=== PATIENT | male | born 1955 | race African-American/Black ===

== ENCOUNTER 2018-12-30 18:32 | Emergency (ER) | payer MEDICARE, OTHER ==
[~2018-12-30] VITALS: Ht 172.7 cm; Wt 123.4 kg
[~2018-12-30 18:32] MED LIST: ACETAMINOPHEN325 M3 PO; CEFTRIAXON1 GM/50 ML IV; HYDROCHLOROTHIA25 MG ORAL; LISINOPRIL20 MG ORAL; LISINOPRIL30 MG ORAL; MIRALAX17 G2 ORAL
[2018-12-30] MEDS ORDERED: TAMSULOSIN HCL0.4 MG ORAL (18:42)
--- NOTE | 2018-12-30 18:45 | NUR ---
ED Nurse Note: Pt walked into the Er w/ complaints of HTN. For the past 3 days, pt has had hot links. Pt has a hx of HTN and takes lisinopril. A + O x4. Ambulatory. Skin warm to touch.
[2018-12-30 18:46] VITALS: BP 162/95
--- NOTE | 2018-12-30 19:09 | NUR ---
HAND-OFF: Report given to ASIF Quiles.
--- NOTE | 2018-12-30 19:12 | Emergency Room Report ---
History of Present Illness General Chief Complaint: Hypertension Source: Patient Present Illness HPI 63-year-old male patient presents the ER complaining of high blood pressure, reflux symptoms, headache. Reports was attempting to give him blood and platelets earlier today however was turned away because his blood pressure was elevated to over 170. Currently at 162 in the ER. States that he normally takes Hydrochlorothiazide and lisinopril, states that he took his medication today. Also complaining of frontal headache during this time. Denies vomiting or vision changes. Denies chest pain or shortness of breath. Denies history of heart attack. Denies abdominal pain. Reports reflux symptoms, states that he ate hot links yesterday and can "still taste it" in his breath. Denies neck pain. Denies other aggravating or relieving factors. Denies smoking cigarettes or drug use, states that he smokes marijuana. Allergies: Coded Allergies: No Known Allergies (Unverified , 10/02/16) Patient History Past Medical History: see triage record Reviewed Nursing Documentation: PMH: Agreed; PSxH: Agreed Nursing Documentation-PMH Past Medical History: No History, Except For Hx Cardiac Problems: No - Osteoarthritis Hx Hypertension: Yes Hx Pacemaker: No Hx Asthma: No Hx COPD: No Hx Diabetes: No Hx Cancer: No Hx Gastrointestinal Problems: Yes - constipation Hx Dialysis: No - BPH Hx Neurological Problems: No Hx Cerebrovascular Accident: No Hx Seizures: No Review of Systems All Other Systems: negative except mentioned in HPI Physical Exam Vital Signs Date Time Temp Pulse Resp B/P (MAP) Pulse Ox O2 Delivery O2 Flow Rate FiO2 12/30/18 18:33 97.9 84 17 162/95 98 Room Air 12/30/18 18:46 97 Sp02 EP Interpretation: reviewed, normal General Appearance: well appearing, no apparent distress, alert, GCS 15, non- toxic Head: normocephalic, atraumatic Eyes: bilateral eye normal inspection, bilateral eye PERRL, bilateral eye EOMI ENT: hearing grossly normal, normal pharynx, no angioedema, normal voice, TMs + canals normal, uvula midline, moist mucus membranes Neck: full range of motion, no meningismus, no bony tend Respiratory: lungs clear, normal breath sounds, no rhonchi, no respiratory distress, no accessory muscle use, no wheezing, speaking full sentences Cardiovascular #1: regular rate, rhythm, no edema Gastrointestinal: non tender, soft, no mass, non-distended, no guarding, no rebound Genitourinary: no CVA tenderness Musculoskeletal: back normal, digits/nails normal, gait/station normal, normal range of motion, non-tender Neurologic: alert, oriented x3, responsive, production hand III-XII nml as tested, motor strength/tone normal, SLR negative, sensory intact, cerebellar normal, normal gait, speech normal Psychiatric: mood/affect normal Skin: no rash Lymphatic: no adenopathy Medical Decision Making PA Attestation Dr. Ramirez is my supervising Physician whom patient management has been discussed with. Diagnostic Impression: Primary Impression: Hypertension Additional Impressions: Headache Acid reflux ER Course Pt. presents to the ED c/o high blood pressure, headache, reflux symptoms. Ddx considered but are not limited to hypertension, WA, CHF, migraine, ICH, acid reflux, GERD, gastritis. Vital signs: are WNL, pt. is afebrile ER COURSE: Provide with Pepcid and pain medication in the ER. CT head negative for acute intracranial pathology, mild mucosal thickening of sinuses noted, will provide patient with Claritin. Discuss results with the patient. Provided patient with copy of results. Instructed patient to followup with PCP and discuss results of report with patient, discuss need for further treatment and referral. CXR negative for acute disease per the preliminary reading. EKG no ST elevations or atrial fibrillation. CBC and CMP unremarkable Troponin negative BNP not significantly elevated Urine drug screen positive for marijuana, consistent with patient history, remainder negative. Advised patient against smoking. Troponin negative, EKG unremarkable, low suspicion for WA, chest x-ray negative , BNP negative, low suspicion for CHF exacerbation. 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 Avoid spicy and fatty foods. No abdominal tenderness palpation, does not require CT abdomen at this time. Follow-up with GI specialist. ER precautions given. DISCHARGE: At this time pt is stable for d/c to home. Patient is resting comfortably, in no acute distress, nontoxic appearing, talking without difficulty. Patient to take medications as instructed Will provide with patient care instructions and any necessary prescriptions. Care plan and follow-up instructions provided. Patient instructed to follow-up with primary care provider in 3 - 5 days. Patient questions asked and answered. Patient reports understanding and agreement to treatment plan. ER precautions given. Patient instructed to return to ER immediately for any new or worsening of symptoms including but not limited to increasing SOB, persistent fever, chest pain, intractable vomiting. - Please note that this Emergency Department Report was dictated using [employer] clerk technology software, occasionally this can lead to erroneous entry secondary to interpretation by the dictation equipment. Labs Test 12/30/18 19:05 12/30/18 19:10 Urine Color Pale yellow Urine Appearance Clear Urine pH 7 (4.5-8.0) Urine Specific [place] 1.010 (1.005-1.035) Urine Protein Negative (NEGATIVE) Urine Glucose (UA) Negative (NEGATIVE) Urine Ketones Negative (NEGATIVE) Urine Blood Negative (NEGATIVE) Urine Nitrite Negative (NEGATIVE) Urine Bilirubin Negative (NEGATIVE) Urine Urobilinogen Normal MG/DL (0.0-1.0) Urine Leukocyte Esterase Negative (NEGATIVE) Urine Opiates Screen Negative (NEGATIVE) Urine Barbiturates Screen Negative (NEGATIVE) Phencyclidine (PCP) Screen Negative (NEGATIVE) Urine Amphetamines Screen Negative (NEGATIVE) Urine Benzodiazepines Screen Negative (NEGATIVE) Urine Cocaine Screen Negative (NEGATIVE) Urine Marijuana (THC) Screen Positive (NEGATIVE) White Blood Count 9.6 K/UL (4.8-10.8) Red Blood Count 5.17 M/UL (4.70-6.10) Hemoglobin 15.5 G/DL (14.2-18.0) Hematocrit 46.0 % (42.0-52.0) Mean Corpuscular Volume 89 FL (80-99) Mean Corpuscular Hemoglobin 29.9 PG (27.0-31.0) Mean Corpuscular Hemoglobin Concent 33.6 G/DL (32.0-36.0) Red Cell Distribution Width 11.5 % (11.6-14.8) Platelet Count 227 K/UL (150-450) Mean Platelet Volume 6.2 FL (6.5-10.1) Neutrophils (%) (Auto) 52.1 % (45.0-75.0) Lymphocytes (%) (Auto) 36.7 % (20.0-45.0) Monocytes (%) (Auto) 6.6 % (1.0-10.0) Eosinophils (%) (Auto) 3.0 % (0.0-3.0) Basophils (%) (Auto) 1.6 % (0.0-2.0) Sodium Level 138 MMOL/L (136-145) Potassium Level 3.7 MMOL/L (3.5-5.1) Chloride Level 103 MMOL/L (98-107) Carbon Dioxide Level 27 MMOL/L (21-32) Anion Gap 8 mmol/L (5-15) Blood Urea Nitrogen 15 mg/dL (7-18) Creatinine 1.2 MG/DL (0.55-1.30) Estimat Glomerular Filtration Rate > 60 mL/min (>60) Glucose Level 90 MG/DL (74-106) Calcium Level 9.8 MG/DL (8.5-10.1) Total Bilirubin 0.4 MG/DL (0.2-1.0) Aspartate Amino Transf (AST/SGOT) 30 U/L (15-37) Alanine Aminotransferase (ALT/SGPT) 53 U/L (12-78) Alkaline Phosphatase 94 U/L (46-116) Troponin I 0.000 ng/mL (0.000-0.056) Pro-B-Type Natriuretic Peptide 56 pg/mL (0-125) Total Protein 7.7 G/DL (6.4-8.2) Albumin 4.0 G/DL (3.4-5.0) Globulin 3.7 g/dL Albumin/Globulin Ratio 1.1 (1.0-2.7) EKG Diagnostic Results Rate: normal Rhythm: NSR ST Segments: no acute changes ZHEN Scribe Juan Bird PA-C Rhythm Strip Diag. Results EP Interpretation: yes Rate: 71 Rhythm: NSR, no PVC's, no ectopy PA Scribe Text Shan Bird PA-C Chest X-Ray Diagnostic Results Chest X-Ray Diagnostic Results : Chest X-Ray Ordered: Yes # of Views/Limited/Complete: 1 View Indication: Chest Pain EP Interpretation: Yes PA Xray: Interpretation reviewed, by supervising MD, and agrees with findings. Interpretation: no consolidation, no effusion, no pneumothorax, no acute cardiopulmonary disease Impression: No acute disease PA Scribe Juan Bird PA-C CT/MRI/US Diagnostic Results CT/MRI/US Diagnostic Results : Imaging Test Ordered: CT head Impression No acute intracranial hemorrhage, edema, or mass effect. No evidence for hydrocephalus. Paranasal sinus mucosal thickening. No significant fluid levels. No mastoid effusion. Last Vital Signs Date Time Temp Pulse Resp B/P (MAP) Pulse Ox O2 Delivery O2 Flow Rate FiO2 12/30/18 18:46 87 20 Room Air 97 12/30/18 18:46 98.0 162/95 98 Status: improved Disposition: HOME, SELF-CARE Condition: Stable Scripts Loratadine (CLARITIN) 10 Mg Capsule 10 MG ORAL DAILY, #30 CAP Prov: Alon Bird 12/30/18 Acetaminophen* (TYLENOL EXTRA STRENGTH*) 500 Mg Tablet 500 MG ORAL Q8H PRN for Prn Headache/Temp > 101, #30 TAB 0 Refills Prov: Alon Bird 12/30/18 Famotidine (PEPCID AC) 20 Mg Tablet 20 MG PO DAILY, #30 TAB Prov: Alon Bird 12/30/18 Patient Instructions: Food Choices for Gastroesophageal Reflux Disease, Adult, [id number], General Headache Without Cause, [id number], Hypertension Additional Instructions: Followup with primary care provider in 3 -5 days for further treatment and referral to GI. Discuss testing for H.pylori. Discussed referral to cardiology for further evaluation and workup. Discussed need for cardiac stress test. Keep food journal of foods eaten and times of symptom onset. Take medications as directed. Patient questions asked and answered. Drink fluids as tolerated to prevent dehydration. Take Tylenol OTC for pain, Mylanta OK. Avoid spicy foods, avoid dairy, avoid alcohol. Do not eat late night meals. Elevate head of bed when sleeping. ER precautions given, patient instructed to return to ER immediately for any new or worsening of symptoms including but not limited to chest pain, SOB, abdominal pain, blood in vomit. Alon Bird Dec 30, 2018 19:12
[2018-12-30 19:23] LABS: APPEARANCE,URINE CLEAR; BILIRUBIN, URINE NEGATIVE (NEGATIVE); COLOR,URINE PALE YELLOW; GLUCOSE, URINE (UA) NEGATIVE (NEGATIVE); KETONES,URINE NEGATIVE (NEGATIVE); LEUKOCYTE ESTERASE ,URINE NEGATIVE (NEGATIVE); NITRITE,URINE NEGATIVE (NEGATIVE); PH,URINE 7 (4.5-8.0); PROTEIN,URINE NEGATIVE (NEGATIVE); UROBILINOGEN,URINE NORMAL MG/DL (0.0-1.0)
[2018-12-30 19:25] LABS: BASOPHILS % (AUTO) 1.6 % (0.0-2.0); HEMOGLOBIN 15.5 G/DL (14.2-18.0); LYMPHOCYTES % (AUTO) 36.7 % (20.0-45.0); MEAN CORPUSCULAR VOLUME 89 FL (80-99); MONOCYTES % (AUTO) 6.6 % (1.0-10.0); NEUTROPHILS % (AUTO) 52.1 % (45.0-75.0); PLATELET COUNT 227 K/UL (150-450); RED BLOOD COUNT 5.17 M/UL (4.70-6.10); RED CELL DISTRIBUTION WIDTH 11.5 % (11.6-14.8); WHITE BLOOD COUNT 9.6 K/UL (4.8-10.8)
[2018-12-30 19:35] LABS: ANION GAP 8 mmol/L (5-15); BLOOD UREA NITROGEN 15 mg/dL (7-18); CALCIUM 9.8 MG/DL (8.5-10.1); CARBON DIOXIDE 27 MMOL/L (21-32); CHLORIDE 103 MMOL/L (98-107); CREATININE 1.2 MG/DL (0.55-1.30); POTASSIUM 3.7 MMOL/L (3.5-5.1); SODIUM 138 MMOL/L (136-145)
[2018-12-30 19:46] LABS: ALANINE AMINOTRANSFERASE 53 U/L (12-78); ALBUMIN/GLOBULIN RATIO 1.1 (1.0-2.7); ALKALINE PHOSPHATASE 94 U/L (46-116); ASPARTATE AMINO TRANSFERASE 30 U/L (15-37); BILIRUBIN,TOTAL 0.4 MG/DL (0.2-1.0)
[2018-12-30] MEDS ORDERED: TYLENOL EXTRA500 MG ORAL (20:31)
[2018-12-30] MEDS ORDERED: PEPCID AC20 M2 PO (20:31)
[2018-12-30] MEDS ORDERED: CLARITIN10 M2 ORAL (20:31)
[2018-12-30 20:33] VITALS: BP 162/95
--- NOTE | 2019-01-01 09:31 | Diagnostic Imaging Report ---
Indication: Chest pain Technique: One view of the chest Comparison: 10/03/2016 Findings: Lungs and pleural spaces are clear. Heart size is normal. The aorta is tortuous. No significant interim change Impression: Negative
--- NOTE | 2019-01-01 09:31 | Diagnostic Imaging Report ---
Indications: Headache Technique: Spiral acquisitions obtained through the brain. Angled axial and coronal 5 x 5 mm slices were reconstructed. Total dose length product 1407.76 mGycm. CTDI vol(s) 70.38 mGy. Dose reduction achieved using automated exposure control Comparison: None. Findings: No acute intrarenal hemorrhage or edema, mass effect, nor midline shift. Normal del rio-white differentiation. Normal-sized ventricles and extra-axial CSF spaces. There is bilateral ethmoid sinus disease. The mastoids are clear. The calvarium is intact Impression: Negative for acute intracranial bleed or mass effect Minimal ethmoid sinus disease This agrees with the preliminary interpretation provided overnight by [facility] teleradiology service. The CT scanner at [facility] is accredited by the [employer] and the scans are performed using protocols designed to limit radiation exposure to as low as reasonably achievable to attain images of sufficient resolution adequate for diagnostic evaluation.
== END 2018-12-30 20:33 | disposition home or self-care (01) ==
LOC: EMR 19:00
DX: I10 Essential (primary) hypertension (principal); R51 Headache; K21.9 Gastro-esophageal reflux disease without esophagitis; F12.90 Cannabis use, unspecified, uncomplicated
CPT/HCPCS: 36415; 70450; 71045; 80053; 80307; 81003; 83880; 84484; 85025; 93005; 99284

== ENCOUNTER 2019-02-01 11:41 | Emergency (ER) | payer MEDICARE, OTHER ==
[~2019-02-01] VITALS: Ht 172.7 cm; Wt 123.8 kg
[~2019-02-01 11:41] MED LIST changes: +CLARITIN10 M2 ORAL; +PEPCID AC20 M2 PO; +TAMSULOSIN HCL0.4 MG ORAL; +TYLENOL EXTRA500 MG ORAL
[2019-02-01 11:52] VITALS: BP 137/94
--- NOTE | 2019-02-01 12:01 | NUR ---
ED Nurse Note: Pt came from home w/ complaints of unable to urinate. Pt has hx of BPH and has tamsulosin. Pt states that he does not like taking tamsulosin because it makes his "stomach hurt". It has been 5 days since he last took his tamsulosin. Pt states that he only takes the medication when he "really needs" it. Pt complains of 6/10 lower abdominal pain. Non radiating. Pt is A + O x4. Ambulatory. Skin warm to touch.
--- NOTE | 2019-02-01 12:16 | NUR ---
ED Nurse Note: Urine has been collected and sent to lab.
[2019-02-01 12:23] LABS: APPEARANCE,URINE CLEAR; BILIRUBIN, URINE NEGATIVE (NEGATIVE); GLUCOSE, URINE (UA) NEGATIVE (NEGATIVE); KETONES,URINE NEGATIVE (NEGATIVE); LEUKOCYTE ESTERASE ,URINE 1+ (NEGATIVE); NITRITE,URINE NEGATIVE (NEGATIVE); PH,URINE 5 (4.5-8.0); PROTEIN,URINE NEGATIVE (NEGATIVE); UROBILINOGEN,URINE 1 MG/DL (0.0-1.0)
[2019-02-01 12:24] LABS: COLOR,URINE YELLOW
--- NOTE | 2019-02-01 12:25 | Emergency Room Report ---
History of Present Illness General Chief Complaint: Male Urogenital Problems Source: Patient Present Illness HPI Patient is a 63-year-old male who presented after increased dysuria as well as urinary frequency. Patient a prior history of prostate enlargement. He reports taking diuretics for his hypertension. He reports being noncompliant with with his prostate medications. He reports having prior history of benign prostatic hypertrophy. He denies any fever. He had not been vomiting. He reports having increased hesitancy with urination. He had been off his medications for the past 5 days. Patient is normally followed by the [facility]. Allergies: Coded Allergies: No Known Allergies (Unverified , 10/02/16) Patient History Past Medical History: see triage record Reviewed Nursing Documentation: PMH: Agreed; PSxH: Agreed Nursing Documentation-PMH Past Medical History: No History, Except For Hx Hypertension: Yes Hx Pacemaker: No Hx Asthma: No Hx COPD: No Hx Diabetes: No Hx Cancer: No Hx Gastrointestinal Problems: Yes - constipation Hx Neurological Problems: No Hx Cerebrovascular Accident: No Hx Seizures: No Review of Systems All Other Systems: negative except mentioned in HPI Physical Exam Vital Signs Date Time Temp Pulse Resp B/P (MAP) Pulse Ox O2 Delivery O2 Flow Rate FiO2 02/01/19 11:52 98.4 73 20 137/94 98 Room Air Sp02 EP Interpretation: reviewed, normal General Appearance: normal inspection, well appearing, no apparent distress, alert, GCS 15, obese Head: atraumatic ENT: normal ENT inspection, hearing grossly normal, normal voice Neck: normal inspection, full range of motion, supple, no bony tend Respiratory: normal inspection, lungs clear, normal breath sounds, no respiratory distress, no retraction, no wheezing Cardiovascular #1: regular rate, rhythm, no edema Gastrointestinal: normal inspection, normal bowel sounds, non tender, soft, no guarding, no hernia Genitourinary: no CVA tenderness Musculoskeletal: normal inspection, back normal, normal range of motion Neurologic: normal inspection, alert, oriented x3, responsive, slate splitter III-XII nml as tested, speech normal Psychiatric: normal inspection, judgement/insight normal, mood/affect normal Skin: normal inspection, normal color, no rash Medical Decision Making Diagnostic Impression: Primary Impression: BPH (benign prostatic hyperplasia) ER Course Patient presented for dysuria. Differential diagnosis included was not limited to appendicitis, urinary tract infection, pelvic inflammatory disease, urethritis, herpes among others.Urinalysis showed no evidence of urinary infection. Patient was noted to have a history of prostate enlargement. Patient was given prescription for refill of his Flomax. He was advised to follow-up with urology. He is given referral. Patient was advised to return if he began having other concerns. Labs Test 02/01/19 12:11 Urine Color Yellow Urine Appearance Clear Urine pH 5 (4.5-8.0) Urine Specific [place] 1.020 (1.005-1.035) Urine Protein Negative (NEGATIVE) Urine Glucose (UA) Negative (NEGATIVE) Urine Ketones Negative (NEGATIVE) Urine Blood Negative (NEGATIVE) Urine Nitrite Negative (NEGATIVE) Urine Bilirubin Negative (NEGATIVE) Urine Urobilinogen 1 MG/DL (0.0-1.0) Urine Leukocyte Esterase 1+ (NEGATIVE) Last Vital Signs Date Time Temp Pulse Resp B/P (MAP) Pulse Ox O2 Delivery O2 Flow Rate FiO2 02/01/19 11:52 98.4 73 20 137/94 98 Room Air Status: improved Disposition: HOME, SELF-CARE Condition: Stable Scripts Tamsulosin HCl (Flomax) 0.4 Mg Cap.er.24h 0.4 MG ORAL DAILY, #30 CAP Prov: Ayad Levy MD 02/01/19 Ayad Levy MD Feb 01, 2019 12:25
[2019-02-01] MEDS ORDERED: PROSCAR5 MG ORAL (13:11)
[2019-02-01] MEDS ORDERED: FLOMAX0.4 MG ORAL (13:29)
[2019-02-01 13:34] VITALS: BP 135/95
--- NOTE | 2019-02-01 13:35 | NUR ---
ER DISCHARGE NOTE: Patient is cleared to be discharged per ERMD, pt is aox4, on room air, with stable vital signs. pt was given dc and prescription instructions, pt was able to verbalize understanding, pt id band removed without complications. pt is able to ambulate with steady gait. pt took all belongings.
== END 2019-02-01 13:35 | disposition home or self-care (01) ==
LOC: EMR 13:04
DX: N40.1 Benign prostatic hyperplasia with lower urinary tract symptoms (principal); R35.0 Frequency of micturition; I10 Essential (primary) hypertension; Z79.899 Other long term (current) drug therapy; E66.9 Obesity, unspecified; Z68.41 Body mass index [BMI] 40.0-44.9, adult
CPT/HCPCS: 81003; 99282

== ENCOUNTER 2019-12-03 09:46 | Emergency (ER) | payer MEDICARE, OTHER ==
[~2019-12-03] VITALS: Ht 172.7 cm; Wt 122.5 kg
[~2019-12-03 09:46] MED LIST changes: +FLOMAX0.4 MG ORAL; +PROSCAR5 MG ORAL
[2019-12-03 09:53] VITALS: BP 192/101
--- NOTE | 2019-12-03 10:03 | NUR ---
ED Nurse Note: PT FROM HOME WALKED IN DUE TO FLU LIKE SYMPTOMS OF BODYACHES, DRY COUGH AND SORE THROAT. AFEBRILE IN TRIAGE 100.1 F. AAO X4 AND AMBULATORY WITH NON LABORED BREATHING.
[2019-12-03] MEDS ORDERED: Albuterol/Ipratropium 3ml neb HHN ONE (10:15)
--- NOTE | 2019-12-03 10:22 | NUR ---
ED Nurse Note: FLU SWAB SENT TO LAB. CALLED [facility] FOR BREATHING TREATMENT.
--- NOTE | 2019-12-03 10:45 | NUR ---
ED Nurse Note: DR ROBERTO NOTIFIED OF PT IS POSITIVE FOR INFLUENZA A.
[2019-12-03] MEDS ORDERED: Oseltamivir 75mg cap ORAL ONE ×2 (11:00→11:01)
[2019-12-03] MEDS ORDERED: TAMIFLU75 MG ORAL (11:01)
[2019-12-03] MEDS ORDERED: NAPROXEN250 M1 PO (11:01)
[2019-12-03] MEDS ORDERED: GUAIFENESIN DM118 M1 ORAL (11:01)
[2019-12-03 11:45] VITALS: BP 192/101
--- NOTE | 2019-12-03 11:46 | NUR ---
discharged home with instruction and rx follow up with pmd
--- NOTE | 2019-12-03 12:11 | Diagnostic Imaging Report ---
Indication: Shortness of breath Technique: One view of the chest Comparison: 12/30/2018 Findings: Inspiration is suboptimal, resulting in crowding of the bronchovascular markings. The heart size is upper limits normal. The aorta is tortuous and ectatic. Upper mediastinum is unremarkable. Findings are essentially unchanged, allowing for differences in degree of inspiration Impression: Hypoventilatory exam. No acute process
--- NOTE | 2019-12-10 08:54 | Emergency Room Report ---
History of Present Illness General Chief Complaint: Flu Like Symptoms Source: Patient, Medical Record Present Illness HPI Patient is a 64-year-old male who presents after increased fever and body aches for the past 3 days. Generalized body aches as well as sore throat. Initial onset of symptoms was on the first day. Reports having some generalized malaise. Denies any vomiting or diarrhea. Denies any significant chest pain. Nonproductive cough. Allergies: Coded Allergies: No Known Allergies (Unverified , 10/02/16) Patient History Past Medical History: see triage record Reviewed Nursing Documentation: PMH: Agreed; PSxH: Agreed Nursing Documentation-PM Past Medical History: No History, Except For Hx Cardiac Problems: No - Osteoarthritis Hx Hypertension: Yes Hx Pacemaker: No Hx Asthma: No Hx COPD: No Hx Diabetes: No Hx Cancer: No Hx Gastrointestinal Problems: No Hx Dialysis: No - BPH History Of Psychiatric Problem: No Hx Neurological Problems: No Hx Cerebrovascular Accident: No Hx Seizures: No Review of Systems All Other Systems: negative except mentioned in HPI Physical Exam General Appearance: well appearing, no apparent distress, alert, GCS 15, obese Head: normocephalic, atraumatic ENT: hearing grossly normal, normal voice Neck: full range of motion, supple Respiratory: lungs clear, normal breath sounds, no respiratory distress, speaking full sentences Cardiovascular #1: normal inspection, regular rate, rhythm, no edema Gastrointestinal: normal inspection, soft Musculoskeletal: normal inspection, no calf tenderness Neurologic: alert, motor strength/tone normal, director field services III-XII nml as tested, oriented x3, normal gait Psychiatric: mood/affect normal Skin: no rash Medical Decision Making Diagnostic Impression: Primary Impression: Influenza A ER Course Patient presented for cough and generalized body aches. Differential diagnosis includes not limited to pneumonia, influenza, bronchitis, COPD, CHF among others. Patient has a benign exam overall. Influenza testing was ordered due to patient's symptoms and current prevalence of influenza. Influenza testing was positive for influenza A. Chest x-ray 1 view read by radiology showed no evidence of acute infiltrate. Patient is given Tamiflu as well as prescriptions for further medications for symptomatic treatment. Does not appear to require hospitalization at this time. The patient is advised to follow up with primary care doctor in 1-2 days. Patient is advised to return if any worsening condition or if any changes in status that are concerning. This report is dictated with [employer] retort load expediter software which may occasionally lead to discrepancies related to use of this software. Patient is advised to follow-up with his primary care physician for recheck. Advised to return if worse. Status: improved Disposition: HOME, SELF-CARE Condition: Stable Referrals: [facility],REFERRING (PCP) Patient Instructions: Influenza Tests Ayad Levy MD Dec 10, 2019 08:54
== END 2019-12-03 11:48 | disposition home or self-care (01) ==
LOC: EMR 10:31
DX: R05 Cough (principal); R07.0 Pain in throat
CPT/HCPCS: 71045; 86710; 99284; J7620

== ENCOUNTER 2019-12-07 12:07 | Emergency (ER) | payer MEDICARE, OTHER ==
[~2019-12-07] VITALS: Ht 172.7 cm; Wt 121.6 kg
[~2019-12-07 12:07] MED LIST changes: +GUAIFENESIN DM118 M1 ORAL; +NAPROXEN250 M1 PO; +TAMIFLU75 MG ORAL
[2019-12-07 12:20] VITALS: BP 128/75
--- NOTE | 2019-12-07 12:20 | NUR ---
ED Nurse Note: Patient came to ED from home c/o increased shortness of breath on exertion and sweating. Patient states it has progressively been getting worse the last week. Patient AxO x 4, no s/s of acute distress noted. Patient on the glass vial bending conveyor feeder, bed in lowest position.
--- NOTE | 2019-12-07 12:42 | Emergency Room Report ---
History of Present Illness General Chief Complaint: Upper Respiratory Illness Source: Patient Present Illness HPI Patient presents with complaints of increased cough and congestion Reports that he went outside to exercise today and felt worse with more shortness of breath he also had an episode of diaphoresis and acute weakness Denies any focal weakness denies any chest pain Denies any vomiting or diarrhea Patient had reported nighttime sweating to the triage Denies any recent travel denies any rash after further questioning and review of medical records Patient was also diagnosed with influenza A here several days ago Allergies: Coded Allergies: No Known Allergies (Unverified , 10/02/16) Patient History Past Medical History: see triage record Reviewed Nursing Documentation: PMH: Agreed; PSxH: Agreed Nursing Documentation-PMH Past Medical History: No Stated History Hx Cardiac Problems: No - Osteoarthritis Hx Hypertension: Yes Hx Pacemaker: No Hx Asthma: No Hx COPD: No Hx Diabetes: No Hx Cancer: No Hx Gastrointestinal Problems: No Hx Dialysis: No - BPH Hx Neurological Problems: No Hx Cerebrovascular Accident: No Hx Seizures: No Review of Systems All Other Systems: negative except mentioned in HPI Physical Exam Vital Signs Date Time Temp Pulse Resp B/P (MAP) Pulse Ox O2 Delivery O2 Flow Rate FiO2 12/07/19 12:15 97.5 111 20 128/75 (92) 99 Room Air Sp02 EP Interpretation: reviewed, normal General Appearance: well appearing, no apparent distress Head: normocephalic, atraumatic Eyes: bilateral eye PERRL, bilateral eye EOMI ENT: hearing grossly normal, normal pharynx, TMs + canals normal, uvula midline Neck: full range of motion, supple, no meningismus, no bony tend Respiratory: no respiratory distress, no retraction, no accessory muscle use, crackles - bilaterally Cardiovascular #1: normal peripheral pulses, regular rate, rhythm, no edema, no gallop, no JVD, no murmur Gastrointestinal: normal bowel sounds, non tender, soft, no mass, no organomegaly, non-distended, no guarding, no hernia, no pulsatile mass, no rebound Genitourinary: no CVA tenderness Musculoskeletal: normal inspection Neurologic: motor strength/tone normal, glucose and syrup weigher III-XII nml as tested, oriented x3 , sensory intact, responsive Psychiatric: mood/affect normal Skin: no rash Lymphatic: normal inspection, no adenopathy Medical Decision Making Diagnostic Impression: Primary Impression: Influenza A ER Course Given the history and presentation multiple differentials and consideration Including but not limited to cardiac, cardiopulmonary, infectious process patient appears to have tested positive for influenza A Denies any recent travel After extensive evaluation EKG and xray at baseline levels Patient has continued to do well Symptomatically feels significantly improved Appears that he put his body under increased stress during time of illness and likely resulted in this episode that he experienced patient will have continued outpatient rest and follow closely with primary physician EKG Diagnostic Results Rate: normal Rhythm: NSR ST Segments: no acute changes Rhythm Strip Diag. Results EP Interpretation: yes Rate: 77 Rhythm: NSR, no PVC's, no ectopy Chest X-Ray Diagnostic Results Chest X-Ray Diagnostic Results : Chest X-Ray Ordered: Yes # of Views/Limited/Complete: 1 View Indication: Chest Pain EP Interpretation: Yes Interpretation: no consolidation, no effusion, no pneumothorax Impression: No acute disease Electronically Signed by: Zackary Bradford DO Last Vital Signs Date Time Temp Pulse Resp B/P (MAP) Pulse Ox O2 Delivery O2 Flow Rate FiO2 12/07/19 12:15 97.5 111 20 128/75 (92) 99 Room Air Status: improved Disposition: HOME, SELF-CARE Condition: Improved Scripts Albuterol Sulfate* (ALBUTEROL SULFATE MDI*) 8.5 Gm Hfa.aer.ad 2 PUFF INH Q6H, #1 EA 0 Refills Prov: Zackary Bradford DO 12/07/19 Additional Instructions: Patient is provided with the discharge instructions notified to follow up with primary doctor in the next 2-3 days otherwise return to the er with any worsening symptoms. Please note that this report is being documented using [employer] technology. This can lead to erroneous entry secondary to incorrect interpretation by the dictating instrument. Zackary Bradford DO Dec 07, 2019 12:42
[2019-12-07] MEDS ORDERED: Albuterol/Ipratropium 3ml neb HHN ONE (12:45)
[2019-12-07] MEDS ORDERED: ALBUTEROL SULF8.5 GM INH (13:51)
[2019-12-07 13:55] VITALS: BP 131/78
--- NOTE | 2019-12-07 13:55 | NUR ---
ER DISCHARGE NOTE: Patient is cleared to be discharged per Dr. Bradford, pt is aox4, on room air, with stable vital signs. pt was given dc and prescription instructions, pt was able to verbalize understanding, ID band removed. Patient is able to ambulate with steady gait. pt took all belongings.
--- NOTE | 2019-12-07 14:06 | Diagnostic Imaging Report ---
Indication: Shortness of breath Technique: One view of the chest Comparison: 12/03/2019 Findings: Lungs and pleural spaces are clear. Heart size is normal. No significant change Impression: No acute process
== END 2019-12-07 13:55 | disposition home or self-care (01) ==
LOC: EMR 13:52
DX: J09.X2 Influenza due to identified novel influenza A virus with other respiratory manifestations (principal); I10 Essential (primary) hypertension; M19.90 Unspecified osteoarthritis, unspecified site
CPT/HCPCS: 71045; 93005; 99284; J7620